=== PATIENT | female | born 1995 | race African-American/Black ===

== ENCOUNTER 2018-09-28 22:02 | Emergency (ER) | payer SELFPAY ==
[~2018-09-28] VITALS: Ht 172.7 cm; Wt 97.8 kg
[2018-09-28] MEDS ORDERED: KETOROLAC 60MG/2ML VIAL IM STA (23:32)
[2018-09-28] MEDS ORDERED: KETOROLAC 30MG/ML VIAL IV STA (23:40)
[2018-09-28] MEDS ORDERED: SODIUM CHLORIDE 0.9% 1,000 ML IV ONE (23:40)
[2018-09-29 00:12] LABS: BASOPHILS % 0.8 % (0.0-2.0); HEMATOCRIT. 39.2 % (36.0-48.0); HEMOGLOBIN. 12.8 g/dL (12.0-16.0); LYMPHOCYTES % 28.7 % (20.0-50.0); MEAN CORPUSCULAR HEMOGLOBIN 26.3 pg (28.0-32.0); MEAN CORPUSCULAR VOLUME 80.4 fL (81.0-99.0); MEAN PLATELET VOLUME 8.4 fl (7.4-10.4); NEUTROPHILS % 58.5 % (40.0-76.0); PLATELET 323 x1000/uL (130-400); RED BLOOD CELL COUNT 4.88 mill/uL (4.2-5.4); RED CELL DISTRIBUTION WIDTH 14.4 % (11.6-14.6)
[2018-09-29 00:17] LABS: CHLORIDE 105 mEq/L (98-107)
[2018-09-29 00:26] LABS: CLARITY URINE CLOUDY (CLEAR); COLOR URINE YELLOW (YELLOW); KETONES URINE NEGATIVE (NEGATIVE); LEUKOCYTE ESTERASE URINE NEGATIVE (NEGATIVE); NITRITE URINE NEGATIVE (NEGATIVE); OCCULT BLOOD URINE NEGATIVE (NEGATIVE); PH URINE 5.5 (4.5-8.0); PROTEIN URINE NEGATIVE (NEGATIVE)
[2018-09-29 03:50] VITALS: BP 118/64
[2018-09-29 10:57] LABS: MONOTEST NEGATIVE (NEGATIVE)
== END 2018-09-29 03:53 | disposition home or self-care (01) ==
LOC: ER 23:38
DX: J06.9 Acute upper respiratory infection, unspecified (principal); R55 Syncope and collapse; R51 Headache
CPT/HCPCS: 36415; 80048; 81003; 85025; 86308; 87070; 87430; 87804; 93005; 96361; 96374; 99284; J1885; J7030

== ENCOUNTER 2018-12-06 09:18 | Emergency (ER) | payer SELFPAY ==
[~2018-12-06] VITALS: Ht 172.7 cm; Wt 97.0 kg
[2018-12-06 11:48] VITALS: BP 122/80
== END 2018-12-06 15:09 | disposition left against medical advice (07) ==
LOC: ER 09:18
DX: Z53.21 Procedure and treatment not carried out due to patient leaving prior to being seen by health care provider (principal)